=== PATIENT | male | born 1960 | race Caucasian/White ===

== ENCOUNTER → 2019-04-12 13:56 | Outpatient (CLI) | payer OTHER ==
[2016-08-27 08:50] VITALS: BMI 34.3
[~2019-04-12 13:56] MED LIST: ASPIRIN325 MG PO; ATIVAN1 MG PO; BENADRYL25 MG PO; DICLOFENAC SODI50 MG PO; FLOMAX0.4 MG PO; GLUCOPHAGE500 MG PO; HYDROCODONE-APA1 TAB PO; ISOSORBIDE MONO30 M1 PO; PRILOSEC PO; SAW PALMETTO450 MG PO; TENORMIN25 MG PO; VITAMIN D31000 UNI2 PO; ZOCOR20 MG PO; ZOLOFT100 MG PO
== END | disposition home or self-care (01) ==
LOC: D.RAD 02:30 → D.RT 15:30
PROVIDERS: ATTEND Pediatrics
DX: Z02.71 Encounter for disability determination (principal)